=== PATIENT | male | born 1965 ===

== ENCOUNTER 2023-11-03 04:11 | Day surgery (SDC) | payer OTHER ==
[2023-11-02 13:27] VITALS: BMI 29.3
[2023-11-03] MEDS ORDERED: MIDAZOLAM HCL 2 MG/2 ML SINGLE DOSE VIAL ONE ×3 (15:04→16:39)
[2023-11-03] MEDS ORDERED: FENTANYL CITRATE/PF 50 MCG/ML VIAL ONE ×5 (15:04→17:09)
[2023-11-03] MEDS ORDERED: PROPOFOL 20 ML ONE (15:08)
[2023-11-03] MEDS ORDERED: ceFAZolin SODIUM 1 GM VIAL IVPB ONE (15:14)
[2023-11-03] MEDS ORDERED: ceFAZolin SODIUM 1 GM VIAL ONE (15:15)
[2023-11-03] MEDS ORDERED: DEXAMETHASONE SOD PHOSPHATE 4 MG/1 ML VIAL ONE (15:15)
[2023-11-03] MEDS ORDERED: ONDANSETRON 4 MG/2 ML VIAL ONE ×2 (15:15→16:24)
[2023-11-03] MEDS ORDERED: PROPOFOL 1,000,000 MCG/100 ML VIAL ONE (16:35)
[2023-11-03] MEDS ORDERED: ONDANSETRON 4 MG/2 ML VIAL IVPUSH PRN (16:45)
[2023-11-03] MEDS ORDERED: LACTATED RINGERS SOLUTION 1,000 ML IV SCH (16:45)
[2023-11-03] MEDS ORDERED: oxyCODONE HCL 5 MG TABLET PO PRN (16:45)
[2023-11-03] MEDS ORDERED: ACETAMINOPHEN INJECTION 100 ML IVPB ONE (16:46)
[2023-11-03] MEDS ORDERED: ACETAMINOPHEN 1000 MG/100 ML BAG IVPB ONE (16:49)
[2023-11-03] MEDS ORDERED: PHENAZOPYRIDINE HCL 100 MG TABLET (FP) PO ONE ×2 (17:29→17:30)
[2023-11-03] MEDS ORDERED: PHENAZOPYRIDINE HCL 100 MG TABLET (FP) ONE (17:32)
[2023-11-03 18:55] VITALS: RESP 20
[2023-11-03] MEDS ORDERED: oxyCODONE HCL 10 MG SUSTAINED ACTING TABLET ONE (18:55)
[2023-11-03 19:23] VITALS: TEMP 97.2
[2023-11-03 19:25] VITALS: BP 165/95; PULSE 60
== END 2023-11-03 19:21 | disposition home or self-care (01) ==
LOC: JASU-SURG 04:11
PROVIDERS: ATTEND Urology
PROC: 0V503ZZ Destruction of Prostate, Percutaneous Approach (ICD-10-PCS; principal; 2023-11-03 14:30)
DX: C61 Malignant neoplasm of prostate (principal)
CPT/HCPCS: 55873; C2618; 94760; C1769